=== PATIENT | male | born 1955 | race Caucasian/White ===

== ENCOUNTER 2021-03-17 17:59 | Outpatient (CLI) | payer MEDICARE, OTHER, SELFPAY ==
[2021-03-17 18:16] VITALS: BP 178/85; PULSE 82; RESP 18; TEMP 38; O2SAT 96; BMI 41.7
[2021-03-17] MEDS: 0.9% Saline Lock 10 ML Syringe IV (18:34)
[2021-03-17 19:12] VITALS: BP 164/80; PULSE 74; RESP 18; TEMP 38.1; O2SAT 93
[2021-03-17] MEDS: Acetaminophen 325 MG Tablet 650 MG PO (19:21)
[2021-03-17 20:04] VITALS: BP 162/83; PULSE 70; RESP 18; TEMP 37.7; O2SAT 93
== END 2021-03-17 19:15 | disposition home or self-care (01) ==
LOC: MS3OUT 18:04 → MS3 18:05
PROVIDERS: Visit Provider Nurse Practitioner Adult Health
DX: Z23 Encounter for immunization (principal); U07.1 COVID-19
CPT/HCPCS: J7050; M0243; A4216; Q0244